=== PATIENT | female | born 1975 | race Two or more races ===

== ENCOUNTER 2024-12-09 10:57 | Emergency (ER) | payer OTHER ==
[~2024-12-09] VITALS: Ht 160 cm; Wt 71.7 kg
[2024-12-09 18:42] LABS: HEMATOCRIT 33.4 % (36.0-45.00); HEMOGLOBIN 11.1 g/dL (12.0-15.00); MEAN CELL VOLUME 74.9 fL (80.00-100.00); MEAN CORPUSCULAR HGB CONC 33.3 g/dl (32.0-36.0); PLATELET COUNT 379 K/uL (150-450); RED BLOOD COUNT 4.46 M/uL (4.00-6.00); RED CELL DISTRIBUTION WIDTH 18.5 % (11.5-14.5)
[2024-12-09] MEDS ORDERED: KETOROLAC TROMETHAMINE 60 MG VIAL IM STA (20:07)
[2024-12-09] MEDS ORDERED: KETOROLAC TROMETHAMINE 60 MG VIAL IM ONE (20:24)
== END 2024-12-09 21:13 | disposition home or self-care (01) ==
LOC: ER 10:59
PROVIDERS: Emergency Medicine
DX: N93.9 Abnormal uterine and vaginal bleeding, unspecified (principal); R10.2 Pelvic and perineal pain

== ENCOUNTER 2024-12-16 12:45 | Outpatient (CLI) | payer OTHER | END 2024-12-16 12:57 | disposition home or self-care (01) | LOC: MRI 12:45 | PROVIDERS: ATTEND Obstetrics & Gynecology | DX: D27.1 Benign neoplasm of left ovary (principal); R10.2 Pelvic and perineal pain | CPT/HCPCS: 72197 ==